=== PATIENT | female | born 1990 | race African-American/Black ===

== ENCOUNTER 2016-08-13 12:35 | Emergency (ER) | payer OTHER, MEDICAID ==
--- NOTE | 2016-08-13 13:10 | ER Document Report ---
ED Medical Screen (RME) - General Stated Complaint: VAGINAL BLEEDING Mode of Arrival: Ambulatory Information source: Patient Notes: Patient presents complaining of left lower pelvic abdominal pain and left lower back pain for the past 4 days. Patient reports vaginal bleeding for the past 12 days. Patient does complain of occasional dizziness hx: None I have greeted and performed a rapid initial assessment of this patient. A comprehensive ED assessment and evaluation of the patient, analysis of test results and completion of the medical decision making process will be conducted by additional ED providers. TRAVEL OUTSIDE OF THE [place] IN LAST 30 DAYS: No - Related Data Allergies/Adverse Reactions: No Known Allergies Allergy (Verified 08/13/16 13:08) Past Medical History Renal/ Medical History: Reports: Hx Pelvic Inflammatory Disease - Chlamydia Past Surgical History: Reports: Hx Oral Surgery - [place] teeth - Immunizations Hx Diphtheria, Pertussis, Tetanus Vaccination: Yes Physical Exam - Vital signs Vitals: Temp Pulse BP Pulse Ox 97.9 F 62 113/76 100 08/13/16 13:07 08/13/16 13:07 08/13/16 13:07 08/13/16 13:07 - Abdominal Tenderness: Tender - Left lower quadrant Course - Vital Signs Vital signs: Temp Pulse Resp BP Pulse Ox 97.9 F 62 113/76 100 08/13/16 13:07 08/13/16 13:07 08/13/16 13:07 08/13/16 13:07
[2016-08-13 13:56] LABS: ABSOLUTE EOSINOPHILS # (AUTO) 0.1 10^3/uL (0.0-0.6); ABSOLUTE MONOCYTES (AUTO) 0.4 10^3/uL (0.1-1.4); ABSOLUTE NEUT (AUTO) 1.8 10^3/uL (1.7-8.2); BASOPHILS % (AUTO) 0.3 % (0-2); EOSINOPHILS % (AUTO) 3.1 % (0-6); HEMATOCRIT 43.2 % (36.0-47.0); HGB HCT DIFFERENCE -1.2; LYMPHOCYTES % (AUTO) 45.8 % (13-45); MEAN CORPUSCULAR HEMOGLOBIN 26.5 pg (27.0-33.4); MEAN CORPUSCULAR HGB CONC 32.5 g/dL (32.0-36.0); MEAN CORPUSCULAR VOLUME 81 fl (80-97); MONOCYTES % (AUTO) 9.9 % (3-13); RED CELL DISTRIBUTION WIDTH 13.4 % (11.5-14.0); SEGMENTED NEUTROPHILS % (AUTO) 40.9 % (42-78); WHITE BLOOD COUNT 4.3 10^3/uL (4.0-10.5)
[2016-08-13 14:09] LABS: ALANINE AMINOTRANSFERASE 28 U/L (9-52); ALBUMIN 4.6 g/dL (3.5-5.0); ALKALINE PHOSPHATASE 75 U/L (38-126); ANION GAP 13 (5-19); ASPARTATE AMINO TRANSFERASE 26 U/L (14-36); BILIRUBIN,TOTAL 0.8 mg/dL (0.2-1.3); BLOOD UREA NITROGEN 8 mg/dL (7-20); CALCIUM 9.9 mg/dL (8.4-10.2); CARBON DIOXIDE 27 mmol/L (22-30); CHLORIDE 105 mmol/L (98-107); CREATININE RESULT 0.82 mg/dL (0.52-1.25); GLUCOSE 91 mg/dL (75-110); POTASSIUM 4.2 mmol/L (3.6-5.0); TOTAL PROTEIN 8.2 g/dL (6.3-8.2)
--- NOTE | 2016-08-13 15:12 | ER Document Report ---
ED General - General Chief Complaint: Vaginal Bleeding Stated Complaint: VAGINAL BLEEDING Mode of Arrival: Ambulatory Notes: Patient presents emergency department with complaints of extended vaginal bleeding for 12 days. Patient reports she thought she started her normal menses on July 31. She reports approximately 4 days ago she started passing clots. She now complains of low back pain and feeling dizzy at times. She reports she had a baby on May 02 and the baby passed. She reports she lost a lot of blood at that time and had to have 2 units of blood transfused. She reports she has followed up with her [employer] since that time. Everything has been normal until this. She reports she had a normal menses in June. She denies other symptoms such as fever vomiting diarrhea. She denies trauma. She reports she is changing pads every 2 hours. TRAVEL OUTSIDE OF THE [place] IN LAST 30 DAYS: No - HPI Onset: Other - jul 31 Quality of pain: Cramping Pain Level: 4 Associated symptoms: None Exacerbated by: Denies Relieved by: Denies Similar symptoms previously: No Recently seen / treated by doctor: No - Related Data Allergies/Adverse Reactions: No Known Allergies Allergy (Verified 08/13/16 13:08) Past Medical History - General Information source: Patient Last Menstrual Period: jul 31- last normal was in 2015 - Social History Smoking Status: Unknown if Ever Smoked Chew tobacco use (# tins/day): No Frequency of alcohol use: None Drug Abuse: Marijuana Family History: CAD, CVA, DM, Hyperlipidemia, Hypertension, Malignancy, Thyroid Disfunction Patient has suicidal ideation: No Patient has homicidal ideation: No Renal/ Medical History: Reports: Hx Pelvic Inflammatory Disease - Chlamydia. Denies: Hx Peritoneal Dialysis Past Surgical History: Reports: Hx Oral Surgery - [place] teeth - Immunizations Hx Diphtheria, Pertussis, Tetanus Vaccination: Yes Review of Systems - Review of Systems Notes: Review HPI for review of systems., All other systems negativeI. Physical Exam - Vital signs Vitals: Temp Pulse BP Pulse Ox 97.9 F 62 113/76 100 08/13/16 13:07 08/13/16 13:07 08/13/16 13:07 08/13/16 13:07 - Notes Notes: PHYSICAL EXAMINATION: GENERAL: Well-appearing and in no acute distress nontoxic looking HEAD: Atraumatic, normocephalic. EYES: Pupils equal round extraocular movements intact, sclera anicteric, conjunctiva are normal. ENT: nares patent, Moist mucous membranes. NECK: Normal range of motion, supple without lymphadenopathy LUNGS: CTAB and equal. No wheezes rales or rhonchi. HEART: Regular rate and rhythm without murmurs ABDOMEN: Soft, no tenderness. No guarding, no rebound no c/o pain with palpation BACK: No c/o pain with palpation EXTREMITIES: Normal range of motion, no pitting edema. No cyanosis. NEUROLOGICAL: Cranial nerves grossly intact. Normal sensory/motor exams. PSYCH: Normal mood, normal affect. SKIN: Warm, Dry, normal turgor, no rashes or lesions noted - Genitourinary External exam: Normal Speculum exam: Normal Vaginal bleeding: None Bimanuel exam: Normal Course - Re-evaluation Re-evalutation: 08/13/16 she instructed on all results. - Vital Signs Vital signs: Temp Pulse Resp BP Pulse Ox 97.8 F 62 18 115/83 100 08/13/16 16:51 08/13/16 16:51 08/13/16 16:51 08/13/16 16:51 08/13/16 16:51 - Laboratory Result Diagrams: 08/13/16 13:30 08/13/16 13:30 Laboratory results interpreted by me: 08/13/16 13:30 RBC 5.30 H MCH 26.5 L Seg Neutrophils % 40.9 L Lymphocytes % 45.8 H Procedures - Pelvic Exam Pelvic exam Cultures obtained: Yes Wet prep obtained: Yes Herpes culture obtained: No POC sent to lab: No Foreign body removed: No Bimanual exam performed: Yes Witnessed by: franchesca RICK Notes: 08/13/16 16:10 no bleeding noted Discharge - Discharge Clinical Impression: Vaginal bleeding Condition: Stable Disposition: HOME, SELF-CARE Instructions: Vaginal Bleeding ([facility]), Use of [id number]-[id number]-Zcqwiik Ibuprofen ([facility]) Additional Instructions: *You have been evaluated for vaginal bleeding *Take ibuprofen for cramps as indicated *Follow up with your [employer] or the health department for recheck within one week *Avoid sexual intercourse until follow up *Return to ED for worsening condition, changes, needs
[2016-08-13 15:19] LABS: APPEARANCE,URINE SLIGHTLY-CLOUDY; BILIRUBIN,URINE NEGATIVE (NEGATIVE); GLUCOSE, URINE NEGATIVE (NEGATIVE); KETONES,URINE NEGATIVE (NEGATIVE); LEUKOCYTE ESTERASE,URINE NEGATIVE (NEGATIVE); NITRITE,URINE NEGATIVE (NEGATIVE); PROTEIN,URINE NEGATIVE (NEGATIVE); URINE SPECIFIC GRAVITY 1.025; UROBILINOGEN,URINE NEGATIVE mg/dL (<2.0)
[2016-08-13 16:53] VITALS: BP 115/83
[2016-08-13 17:28] LABS: CHLAM PCR NOT DETECTED (NOT DETECT)
== END 2016-08-13 16:51 | disposition home or self-care (01) ==
LOC: ER 12:35
DX: N93.8 Other specified abnormal uterine and vaginal bleeding (principal)
CPT/HCPCS: 36415; 80053; 81001; 84703; 85025; 87210; 87491; 87591; 99284

== ENCOUNTER 2017-02-13 16:03 | Emergency (ER) | payer MEDICAID, OTHER ==
--- NOTE | 2017-02-13 16:26 | ER Document Report ---
ED Medical Screen (RME) - General Chief Complaint: Dizziness Stated Complaint: DIZZINESS Time Seen by Provider: 02/13/17 16:26 Notes: Patient reports several days of feeling weak and dizzy. She states this feels similar to when she had have a transfusion before. She states she had have a transfusion because of heavy menstrual cycles. She was placed on iron tablets but has not been taking them recently. No recent heavy menstrual cycle. She is unsure if she is . TRAVEL OUTSIDE OF THE [place] IN LAST 30 DAYS: No - Related Data Allergies/Adverse Reactions: No Known Allergies Allergy (Verified 02/13/17 16:08) Past Medical History Renal/ Medical History: Reports: Hx Pelvic Inflammatory Disease - Chlamydia. Denies: Hx Peritoneal Dialysis Past Surgical History: Reports: Hx Oral Surgery - [place] teeth - Immunizations Hx Diphtheria, Pertussis, Tetanus Vaccination: Yes
[2017-02-13 17:18] LABS: ABSOLUTE LYMPHOCYTES (AUTO) 1.8 10^3/uL (0.5-4.7); ABSOLUTE MONOCYTES (AUTO) 0.4 10^3/uL (0.1-1.4); BASOPHILS % (AUTO) 0.4 % (0-2); EOSINOPHILS % (AUTO) 0.3 % (0-6); HEMATOCRIT 39.9 % (36.0-47.0); HGB HCT DIFFERENCE -0.9; LYMPHOCYTES % (AUTO) 21.8 % (13-45); MEAN CORPUSCULAR HEMOGLOBIN 26.9 pg (27.0-33.4); MEAN CORPUSCULAR HGB CONC 32.7 g/dL (32.0-36.0); MEAN CORPUSCULAR VOLUME 82 fl (80-97); MONOCYTES % (AUTO) 5.4 % (3-13); RED BLOOD COUNT 4.85 10^6/uL (3.72-5.28); RED CELL DISTRIBUTION WIDTH 14.2 % (11.5-14.0); SEGMENTED NEUTROPHILS % (AUTO) 72.1 % (42-78); WHITE BLOOD COUNT 8.3 10^3/uL (4.0-10.5)
--- NOTE | 2017-02-13 17:23 | ER Document Report ---
ED General - General Mode of Arrival: Ambulatory Information source: Patient TRAVEL OUTSIDE OF THE [place] IN LAST 30 DAYS: No - HPI Onset: This afternoon Associated symptoms: Other - see above <SATISH SALAS - Last Filed: 02/13/17 17:19> <ELIE CAMPBELL - Last Filed: 02/13/17 18:23> - General Chief Complaint: Dizziness Stated Complaint: DIZZINESS Time Seen by Provider: 02/13/17 16:26 Notes: Patient is a 26 year old female who presents to the ED with complaints of feeling weak and dizzy with onset this afternoon. Patient has a history of anemia and had a blood transfusion 6 months ago. Patient stopped iron pills in November. Patient has had a headache since approximately 1300. Patient is only on control. Patients last menstrual period was 2 week ago, she states normally her periods are heavy but states this time it was short. Patient denies any abdominal pain. (SATISH SALAS) Patient states the dizziness she had earlier today is gone at this time. (ELIE CAMPBELL) - Related Data Allergies/Adverse Reactions: No Known Allergies Allergy (Verified 02/13/17 16:08) Past Medical History - General Information source: Patient - Social History Smoking Status: Unknown if Ever Smoked Family History: CAD, CVA, DM, Hyperlipidemia, Hypertension, Malignancy, Thyroid Disfunction Patient has suicidal ideation: No Renal/ Medical History: Reports: Hx Pelvic Inflammatory Disease - Chlamydia. Denies: Hx Peritoneal Dialysis Past Surgical History: Reports: Hx Oral Surgery - [place] teeth - Immunizations Hx Diphtheria, Pertussis, Tetanus Vaccination: Yes <SATISH SALAS - Last Filed: 02/13/17 17:19> Review of Systems - Review of Systems Constitutional: See HPI, Weakness EENT: No symptoms reported Cardiovascular: See HPI, Dizziness Respiratory: No symptoms reported Gastrointestinal: See HPI. denies: Abdominal pain Genitourinary: No symptoms reported Female Genitourinary: No symptoms reported Musculoskeletal: No symptoms reported Skin: No symptoms reported Hematologic/Lymphatic: No symptoms reported Neurological/Psychological: See HPI, Weakness <SATISH SALAS - Last Filed: 02/13/17 17:19> Physical Exam - General General appearance: Appears well, Alert In distress: None - HEENT Head: Normocephalic, Atraumatic Eyes: Normal Extraocular movements intact: Yes Pupils: PERRL - Respiratory Respiratory status: No respiratory distress Breath sounds: Normal - Cardiovascular Rhythm: Regular Heart sounds: Normal auscultation Murmur: No - Abdominal Inspection: Normal Distension: No distension Bowel sounds: Normal Tenderness: Nontender - Back Back: Normal - Extremities General upper extremity: Normal inspection, Normal ROM General lower extremity: Normal inspection, Normal ROM - Neurological Neuro grossly intact: Yes - Psychological Associated symptoms: Normal affect, Normal mood - Skin Skin Temperature: Warm Skin Moisture: Dry Skin Color: Normal <SATISH SALAS - Last Filed: 02/13/17 17:19> Course - Laboratory Result Diagrams: 02/13/17 16:27 02/13/17 16:47 <ELIE CAMPBELL - Last Filed: 02/13/17 18:23> - Laboratory Laboratory results interpreted by me: 02/13/17 02/13/17 02/13/17 16:27 16:47 16:47 MCH 26.9 L RDW 14.2 H Total Protein 8.3 H Urine Ketones TRACE H Ur Leukocyte Esterase TRACE H Discharge <SATISH SALAS - Last Filed: 02/13/17 17:19> <ELIE CAMPBELL - Last Filed: 02/13/17 18:23> - Discharge Clinical Impression: Dizzy Headache Qualifiers: Headache type: unspecified Headache chronicity pattern: acute headache Intractability: not intractable Qualified Code(s): R51 - Headache Condition: Stable Disposition: HOME, SELF-CARE Additional Instructions: Your hemoglobin level today was normal. Your dizziness is probably due to a viral illness, as it seems to have improved from earlier today. Your headache is also likely to be due to viral illness. Today you should take Tylenol for your headache if needed, drink plenty of fluids and get plenty of rest. Follow-up with your medical doctor if not improving. RETURN TO THE EMERGENCY ROOM IF ANY NEW OR WORSENING SYMPTOMS. Forms: Return to Work Scribe Attestation: 02/13/17 18:21 I personally performed the services described in the documentation, reviewed and edited the documentation which was dictated to the scribe in my presence, and it accurately records my words and actions. (ELIE CAMPBELL) Scribe Documentation - Scribe Written by Scribe:: ryan Figueroa, 02/13/2017, 1723 acting as scribe for :: Rachelle <SATISH SALAS - Last Filed: 02/13/17 17:19>
[2017-02-13 17:32] LABS: ALANINE AMINOTRANSFERASE 25 U/L (9-52); ALBUMIN 4.9 g/dL (3.5-5.0); ALKALINE PHOSPHATASE 62 U/L (38-126); ANION GAP 11 (5-19); ASPARTATE AMINO TRANSFERASE 27 U/L (14-36); BILIRUBIN,DIRECT 0.3 mg/dL (0.0-0.4); BILIRUBIN,TOTAL 0.9 mg/dL (0.2-1.3); BLOOD UREA NITROGEN 11 mg/dL (7-20); CALCIUM 9.6 mg/dL (8.4-10.2); CARBON DIOXIDE 25 mmol/L (22-30); CHLORIDE 106 mmol/L (98-107); CREATININE RESULT 1.03 mg/dL (0.52-1.25); GLUCOSE 97 mg/dL (75-110); POTASSIUM 4.2 mmol/L (3.6-5.0); SODIUM 141.8 mmol/L (137-145); TOTAL PROTEIN 8.3 g/dL (6.3-8.2)
[2017-02-13 18:12] LABS: APPEARANCE,URINE SLIGHTLY-CLOUDY; BILIRUBIN,URINE NEGATIVE (NEGATIVE); GLUCOSE, URINE NEGATIVE (NEGATIVE); KETONES,URINE TRACE mg/dL (NEGATIVE); LEUKOCYTE ESTERASE,URINE TRACE (NEGATIVE); NITRITE,URINE NEGATIVE (NEGATIVE); PROTEIN,URINE NEGATIVE (NEGATIVE); URINE SPECIFIC GRAVITY 1.027; UROBILINOGEN,URINE NEGATIVE mg/dL (<2.0)
[2017-02-13 19:01] VITALS: BP 116/77
== END 2017-02-13 19:06 | disposition home or self-care (01) ==
LOC: ER 16:03
DX: R42 Dizziness and giddiness (principal); R51 Headache; R53.1 Weakness
CPT/HCPCS: 36415; 80053; 81001; 81025; 85025; 99284

== ENCOUNTER 2017-07-29 08:52 | Emergency (ER) | payer OTHER ==
--- NOTE | 2017-07-29 09:29 | ER Document Report ---
ED Medical Screen (RME) - General Chief Complaint: Abdominal Pain Stated Complaint: ABDOMINAL PAIN Time Seen by Provider: 07/29/17 09:12 Mode of Arrival: Ambulatory Information source: Patient Notes: This is a 27-year-old female 1 para 0 (1 miscarriage due to cervical incompetence at 7 months ). The patient is sexually active and uses no control. Her menstrual cycle is reported as irregular. Her last normal menstrual cycle was June 22. She presents to the emergency room with intermittent abdominal discomfort, breast soreness and low back pain. There has been no nausea, vomiting, vaginal bleeding. Patient states she is eating okay. TRAVEL OUTSIDE OF THE [place] IN LAST 30 DAYS: No - HPI Onset: Last week Onset/Duration: Gradual Quality of pain: Cramping Severity: None Associated Symptoms: denies: Chest pain, Fever, Headache, Slow to respond Exacerbated by: Denies Relieved by: Denies Similar symptoms previously: Yes - Similar symptoms during Recently seen / treated by doctor: No - Related Data Smoking: Non-smoker Frequency of alcohol use: None Drug Abuse: None Allergies/Adverse Reactions: No Known Allergies Allergy (Verified 07/29/17 08:53) Past Medical History - General Information source: Patient - Social History Cigarette use (# per day): No Chew tobacco use (# tins/day): No Frequency of alcohol use: None Drug Abuse: Marijuana Lives with: Family Family history: None - Medical History Medical History: Negative Renal/ Medical History: Reports: Hx Pelvic Inflammatory Disease - Chlamydia. Denies: Hx Peritoneal Dialysis Malignancy Medical History: Reports: None GI Medical History: Reports: None Musculoskeltal Medical History: Reports None Skin Medical History: Reports None Psychiatric Medical History: Reports: None Traumatic Medical History: Reports: None Infectious Medical History: Reports: None Past Surgical History: Reports: Hx Oral Surgery - [place] teeth - Immunizations Hx Diphtheria, Pertussis, Tetanus Vaccination: Yes Review of Systems - Review of Systems Constitutional: denies: Chills, Fever EENT: No symptoms reported Cardiovascular: No symptoms reported Respiratory: No symptoms reported Gastrointestinal: See HPI Genitourinary: No symptoms reported Female Genitourinary: No symptoms reported Musculoskeletal: See HPI Skin: No symptoms reported Hematologic/Lymphatic: No symptoms reported Neurological/Psychological: No symptoms reported Physical Exam - Vital signs Vitals: Temp Pulse Resp BP Pulse Ox 98.1 F 87 16 112/66 100 07/29/17 08:59 07/29/17 08:59 07/29/17 08:59 07/29/17 08:59 07/29/17 08:59 Notes: Physical exam: GENERAL: 27-year-old female, alert and oriented 3, no acute distress HEAD: Atraumatic, normocephalic. EYES: Pupils equal round and reactive to light, extraocular movements intact, sclera anicteric, conjunctiva are normal. ENT: TMs normal, nares patent, oropharynx clear without exudates. Moist mucous membranes. NECK: Normal range of motion, supple without obvious mass or JVD. LUNGS: Breath sounds clear to auscultation bilaterally and equal. No wheezes rales or rhonchi. HEART: Regular rate and rhythm without murmurs, rubs or gallops. ABDOMEN: Soft, normoactive bowel sounds. No tenderness to palpation. No guarding, no rebound. No masses appreciated. EXTREMITIES: Normal range of motion, no pitting or edema. No clubbing or cyanosis. NEUROLOGICAL: Cranial nerves II through XII grossly intact. Normal speech, moving all extremities. PSYCH: Normal mood, normal affect. SKIN: Warm, Dry, normal turgor, no rashes or lesions noted. Course - Re-evaluation Re-evalutation: 07/29/17 12:03 At the time of discharge, I have instructed the patient at the bedside with regards to return precautions and follow-up recommendations. The opportunity for questions was given. The patient has verbalized understanding of these instructions and the need for follow-up. - Vital Signs Vital signs: Temp Pulse Resp BP Pulse Ox 98.8 F 90 16 115/80 97 07/29/17 11:58 07/29/17 11:58 07/29/17 11:58 07/29/17 11:58 07/29/17 11:58 - Laboratory Laboratory results interpreted by ak: 07/29/17 07/29/17 09:35 09:35 Beta HCG, Quant 780.35 H Urine Ketones 80 H Urine Urobilinogen 2.0 H Ur Leukocyte Esterase LARGE H Urine Ascorbic Acid 40 H - Diagnostic Test Radiology reviewed: Image reviewed, Reports reviewed - Ultrasound does show intrauterine gestational sac. The official report is nondiagnostic is quite early. Doctor's Discharge - Discharge Clinical Impression: First trimester Condition: Stable Disposition: HOME, SELF-CARE Additional Instructions: As we discussed, the official report of the ultrasound is nondiagnostic. However, there does appear to be a small gestational sac in the uterus consistent with early . Given your history of cervical incompetence, I would like you to [facility] in the . It is recommended that you have a repeat blood testing and potentially an ultrasound in the next week. However, return to the emergency room for any pain, worsening cramping or vaginal bleeding in the meantime. As far as medicines that are safe in : Tylenol is okay: No aspirin or ibuprofen or Aleve Referrals: BERNADETTE CROWE MD [ACTIVE STAFF] - Follow up as needed (This is the number for the [facility])
[2017-07-29 10:07] LABS: APPEARANCE,URINE SLIGHTLY-CLOUDY; BILIRUBIN,URINE NEGATIVE (NEGATIVE); COLOR,URINE YELLOW; GLUCOSE, URINE NEGATIVE (NEGATIVE); KETONES,URINE 80 mg/dL (NEGATIVE); LEUKOCYTE ESTERASE,URINE LARGE (NEGATIVE); NITRITE,URINE NEGATIVE (NEGATIVE); PROTEIN,URINE NEGATIVE (NEGATIVE); URINE SPECIFIC GRAVITY 1.033
--- NOTE | 2017-07-29 11:40 | RADIOLOGY REPORT (SQ) ---
EXAM DESCRIPTION: U/S OB TRANSVAG W/DOPPLER COMPLETED DATE/TIME: 07/29/2017 11:32 am REASON FOR STUDY: abd cramping, preg COMPARISON: None. TECHNIQUE: Transvaginal static and realtime grayscale images acquired of the pelvis. Additional blaze cted spectral and color Doppler images recorded. All images stored on PACs. bHC.35 LIMITATIONS: None. FINDINGS: UTERUS: No masses. No anomalies. GESTATIONAL SAC: Possible. YOLK SAC: No. POLE: No. RIGHT ADNEXA: Normal ovary with normal vascular flow. No adnexal free fluid. No adnexal masses. LEFT ADNEXA: Normal ovary with normal vascular flow. No adnexal free fluid. No adnexal masses. FREE FLUID: None. OTHER: No other significant finding. IMPRESSION: POSSIBLE EARLY INTRAUTERINE . BHCG LEVEL APPROPRIATE FOR ENDOMETRIAL FINDINGS. CONSIDER F/U BHCG AND/OR ULTRASOUND FOR VERIFICATION AND TO EXCLUDE ECTOPIC . Trimester of : First - 0 to 13 weeks. TECHNICAL DOCUMENTATION: JOB ID: [id number] [employer]- All Rights Reserved
[2017-07-29 11:59] VITALS: BP 115/80
== END 2017-07-29 12:04 | disposition home or self-care (01) ==
LOC: ER 08:52
DX: O26.891 Other specified pregnancy related conditions, first trimester (principal); R19.8 Other specified symptoms and signs involving the digestive system and abdomen; O99.89 Other specified diseases and conditions complicating pregnancy, childbirth and the puerperium; M54.5 Low back pain; O92.29 Other disorders of breast associated with pregnancy and the puerperium; Z3A.01 Less than 8 weeks gestation of pregnancy; Z87.59 Personal history of other complications of pregnancy, childbirth and the puerperium
CPT/HCPCS: 36415; 76817; 81001; 84702; 87086; 93976; 99284

== ENCOUNTER 2017-08-12 06:35 | Emergency (ER) | payer OTHER ==
--- NOTE | 2017-08-12 07:18 | ER Document Report ---
ED GI/ - General Chief Complaint: Vaginal Bleeding Stated Complaint: VAGINAL BLEEDING Time Seen by Provider: 08/12/17 07:18 Mode of Arrival: Ambulatory Information source: Patient Notes: 27 yo female (spon AB) with scant spotting when she wiped after urination this am. No pelvic pain. Increased vaginal discharge. No itch. No dysuria. No fever. History of chlamydia years ago. Seen in the emergency room July 29 with early IUP on US. TRAVEL OUTSIDE OF THE [place] IN LAST 30 DAYS: No - Related Data Allergies/Adverse Reactions: No Known Allergies Allergy (Verified 08/12/17 06:38) Past Medical History - General Information source: Patient - Social History Smoking Status: Never Smoker Drug Abuse: Marijuana - 2 months ago Family History: CAD, CVA, DM, Hyperlipidemia, Hypertension, Malignancy, Thyroid Disfunction Patient has suicidal ideation: No Patient has homicidal ideation: No - Medical History Notes: 1 spontaneous miscarriage April 2016 Renal/ Medical History: Reports: Hx Pelvic Inflammatory Disease - Chlamydia. Denies: Hx Peritoneal Dialysis Past Surgical History: Reports: Hx Oral Surgery - [place] teeth - Immunizations Hx Diphtheria, Pertussis, Tetanus Vaccination: Yes Review of Systems - Review of Systems Constitutional: No symptoms reported EENT: No symptoms reported Cardiovascular: No symptoms reported Respiratory: No symptoms reported Gastrointestinal: No symptoms reported Genitourinary: No symptoms reported Female Genitourinary: See HPI Musculoskeletal: No symptoms reported Skin: No symptoms reported Hematologic/Lymphatic: No symptoms reported Neurological/Psychological: No symptoms reported Physical Exam - Vital signs Vitals: Temp Pulse Resp BP Pulse Ox 98.0 F 85 18 115/57 L 97 08/12/17 06:44 08/12/17 06:44 08/12/17 06:44 08/12/17 06:44 08/12/17 06:44 Interpretation: Normal - General General appearance: Appears well, Alert - HEENT Head: Normocephalic, Atraumatic Eyes: Normal Pupils: PERRL Neck: Supple. No: Lymphadenopathy - Respiratory Respiratory status: No respiratory distress Chest status: Nontender Breath sounds: Normal Chest palpation: Normal - Cardiovascular Rhythm: Regular Heart sounds: Normal auscultation Murmur: No - Abdominal Inspection: Normal Distension: No distension Bowel sounds: Normal Tenderness: Nontender. No: Tender Organomegaly: No organomegaly - Genitourinary External exam: Normal Speculum exam: Cervix closed Vaginal bleeding: Mild - scant blood at os, clumpy white discharge with no odor - Back Back: Normal, Nontender. No: CVA tenderness - Extremities General upper extremity: Normal inspection, Nontender, Normal color, Normal ROM , Normal temperature General lower extremity: Normal inspection, Nontender, Normal color, Normal ROM , Normal temperature, Normal weight bearing. No: Janice's sign - Neurological Neuro grossly intact: Yes Cognition: Normal Orientation: AAOx4 [place] Coma Scale Eye Opening: Spontaneous [place] Coma Scale Verbal: Oriented Cindi Coma Scale Motor: Obeys Commands Cindi Coma Scale Total: 15 Speech: Normal Motor strength normal: LUE, RUE, LLE, RLE Sensory: Normal - Psychological Associated symptoms: Normal affect, Normal mood - Skin Skin Temperature: Warm Skin Moisture: Dry Skin Color: Normal Course - Re-evaluation Re-evalutation: 08/12/17 08:47 Quantitative has increased to 99,805, CBC is normal, blood type is O+, trace bacteria in urine with 3 RBCs and 3 WBCs negative nitrite. 08/12/17 09:13 wet prep no yeast, 4+bact, 3+ epi but is not malodorous 08/12/17 09:29 6 week 1 day viable IUP, pt will call me back for the chlam jenni result - Vital Signs Vital signs: Temp Pulse Resp BP Pulse Ox 98.0 F 72 18 117/70 99 08/12/17 09:36 08/12/17 09:36 08/12/17 09:36 08/12/17 09:36 08/12/17 09:36 - Laboratory Result Diagrams: 08/12/17 07:40 Laboratory results interpreted by me: 08/12/17 08/12/17 07:40 07:40 Beta HCG, Quant 39442.00 H Urine Blood MODERATE H Ur Leukocyte Esterase LARGE H Discharge - Discharge Clinical Impression: viable 6 week 1 day IUP Condition: Good Disposition: HOME, SELF-CARE Instructions: Bleeding During Early ([facility]), Vaginal Bleeding ([facility]) Additional Instructions: Return to the emergency room for increased bleeding or pelvic pain, any concerns Call me in 3 hours for the gonorrhea and Chlamydia test results [phone] Referrals: FRED BARLOW MD [Primary Care Provider] - Follow up as needed
[2017-08-12 07:59] LABS: ABSOLUTE EOSINOPHILS # (AUTO) 0.1 10^3/uL (0.0-0.6); ABSOLUTE LYMPHOCYTES (AUTO) 1.8 10^3/uL (0.5-4.7); ABSOLUTE MONOCYTES (AUTO) 0.6 10^3/uL (0.1-1.4); ABSOLUTE NEUT (AUTO) 5.4 10^3/uL (1.7-8.2); BASOPHILS % (AUTO) 0.6 % (0-2); EOSINOPHILS % (AUTO) 0.8 % (0-6); HEMATOCRIT 40.2 % (36.0-47.0); HEMOGLOBIN 13.6 g/dL (12.0-15.5); LYMPHOCYTES % (AUTO) 22.4 % (13-45); MEAN CORPUSCULAR HEMOGLOBIN 28.5 pg (27.0-33.4); MEAN CORPUSCULAR HGB CONC 33.9 g/dL (32.0-36.0); MEAN CORPUSCULAR VOLUME 84 fl (80-97); MONOCYTES % (AUTO) 7.2 % (3-13); PLATELET COUNT 256 10^3/uL (150-450); RED BLOOD COUNT 4.77 10^6/uL (3.72-5.28); RED CELL DISTRIBUTION WIDTH 13.3 % (11.5-14.0); TOTAL CELLS COUNTED % (AUTO) 100 %; WHITE BLOOD COUNT 7.8 10^3/uL (4.0-10.5)
[2017-08-12 08:10] LABS: APPEARANCE,URINE SLIGHTLY-CLOUDY; BILIRUBIN,URINE NEGATIVE (NEGATIVE); COLOR,URINE YELLOW; GLUCOSE, URINE NEGATIVE (NEGATIVE); KETONES,URINE NEGATIVE (NEGATIVE); LEUKOCYTE ESTERASE,URINE LARGE (NEGATIVE); NITRITE,URINE NEGATIVE (NEGATIVE); PROTEIN,URINE NEGATIVE (NEGATIVE); URINE SPECIFIC GRAVITY 1.012; UROBILINOGEN,URINE NEGATIVE mg/dL (<2.0)
--- NOTE | 2017-08-12 08:48 | RADIOLOGY REPORT (SQ) ---
EXAM DESCRIPTION: U/S OB TRANSVAG W/DOPPLER COMPLETED DATE/TIME: 08/12/2017 8:22 am REASON FOR STUDY: vaginal bleeding COMPARISON: None. TECHNIQUE: Transvaginal static and realtime grayscale images acquired of the pelvis. Additional blaze cted spectral and color Doppler images recorded. All images stored on PACs. bHCG: Pending. LIMITATIONS: None. FINDINGS: FETUS: Living intrauterine . EGA: 6 weeks 1 day MIO: 04/06/2018 FHR: 116 beats per minute. SUBCHORIONIC BLEED: No. SIZE OF BLEED: Not applicable. UTERUS: No masses. No anomalies. CERVICAL LENGTH: 3.2 cm Closed. RIGHT ADNEXA: Normal ovary with normal vascular flow. No adnexal free fluid. No adnexal masses. LEFT ADNEXA: Normal ovary with normal vascular flow. No adnexal free fluid. No adnexal masses. FREE FLUID: None. OTHER: No other significant finding. IMPRESSION: LIVING INTRAUTERINE . EGA 6 weeks 1 day Trimester of : First - 0 to 13 weeks. TECHNICAL DOCUMENTATION: JOB ID: [id number] [employer]- All Rights Reserved
[2017-08-12 08:53] LABS: BACTERIA (WET MOUNT) 3+ BACTERIA SEEN; EPITHELIALS (WET MOUNT) 4+ EPITHELIALS SEEN; RBCS (WET MOUNT) 1+ RBCS SEEN; T.VAGINALIS (WET MOUNT) NO TRICHOMONAS SEEN; WBCS (WET MOUNT) 1+ WBCS SEEN; YEAST (WET MOUNT) NO YEAST SEEN
[2017-08-12 09:40] VITALS: BP 117/70
[2017-08-12 10:21] LABS: CHLAM PCR NOT DETECTED (NOT DETECT); GON PCR NOT DETECTED (NOT DETECT)
== END 2017-08-12 09:39 | disposition home or self-care (01) ==
LOC: ER 06:35
DX: O20.9 Hemorrhage in early pregnancy, unspecified (principal); Z3A.01 Less than 8 weeks gestation of pregnancy
CPT/HCPCS: 36415; 76817; 81001; 84702; 85025; 86900; 86901; 87210; 87491; 87591; 93976; 99284

== ENCOUNTER 2018-02-19 11:12 | Outpatient (CLI) | payer OTHER ==
--- NOTE | 2018-02-19 12:08 | L&D Progress Notes ---
PROGRESS NOTES Datetime Report Generated by CPN: 02/19/2018 12:08 PROGRESS NOTE Impression: Reassuring Heart Rate Impression Other: stable, s/p fall at 34 wks Procedures- Other: EFM Plan: Discharge Vital Signs : Reviewed; Within Normal Limits Vital Signs Comments: O+ blood type Comment: Pt tripped over her dog this morning and fell on her side. No direct hit to her abdoman. States +FM, denies SRoM, pain, bleeding or contractions Abdoman soft and nontender on palpation. Abruption precautions discussed. Pt to f/u with [facility] as scheduled or if having abd pain, vaginal bleeding, decreased FM or Contractions. Will D/c to home MEMBRANES Membranes: Intact FETUS A Monitoring: External US FHR Category: Category I FHR Comments: +FM on EFM, SIGNATURE SIGNATURE: [id number] Assignment: Cynthia Car MD Signature: with User ID: Rachel : with User ID: Rachel
== END 2018-02-19 12:36 | disposition home or self-care (01) ==
LOC: LC 11:12
PROVIDERS: ATTEND Obstetrics & Gynecology
PROC: 4A1HXCZ Monitoring of Products of Conception, Cardiac Rate, External Approach (ICD-10-PCS; principal; 2018-02-19)
DX: O9A.213 Injury, poisoning and certain other consequences of external causes complicating pregnancy, third trimester (principal); Z3A.34 34 weeks gestation of pregnancy
CPT/HCPCS: 59025

== ENCOUNTER 2018-02-28 16:06 | Outpatient (CLI) | payer OTHER ==
--- NOTE | 2018-02-28 17:02 | Non Stress Test Report ---
Non Stress Test Datetime Report Generated by CPN: 02/28/2018 17:02 DEMOGRAPHIC EGA NST: 34.5 EGA NST: 33.3 INDICATION Indication for Study: Ordered by Provider Indication for Study: Ordered by Provider Indication for Study (NST) Other: repeat NST VITAL SIGNS NBPSYS NST: 107 NBPDIA NST: 55 MONITORING Monitor Explained: Monitor Explained; Test Explained; Patient Verbalized Understanding Monitor Explained: Monitor Explained; Test Explained; Patient Verbalized Understanding Time on Monitor: 02/28/2018 16:23 Time on Monitor: 02/19/2018 11:24 Time off Monitor: 02/28/2018 16:56 Time off Monitor: 02/19/2018 12:33 NST Duration: 33 NST Duration: 69 NST INTERVENTIONS NST Interventions: PO Hydration NST Interventions: PO Hydration; Reposition Patient Physician Notified NST: Dr. Cotto Physician Notified NST: aMrilyn Sheppard CNM BABY A: [id number] BABY A Movement : Present Movement : Present Contraction Frequency : 0 Contraction Frequency : denies FHR Baseline : 135 FHR Baseline : 150 Accelerations : 15X15 Accelerations : 15X15 Decelerations : None Decelerations : None Variability : Moderate 6-25bpm Variability : Moderate 6-25bpm NST Review: Meets Criteria for Reactive NST NST Review: Meets Criteria for Reactive NST NST Review and Verified By : Isidra Harris RN NST Results: Reactive NST Results: Reactive NST REPORT Report Trigger: Send Report
== END 2018-02-28 17:03 | disposition home or self-care (01) ==
LOC: LC 16:06
PROVIDERS: ATTEND Obstetrics & Gynecology
PROC: 4A1HXCZ Monitoring of Products of Conception, Cardiac Rate, External Approach (ICD-10-PCS; principal; 2018-02-28)
DX: Z34.93 Encounter for supervision of normal pregnancy, unspecified, third trimester (principal); Z3A.34 34 weeks gestation of pregnancy
CPT/HCPCS: 59025

== ENCOUNTER 2018-03-24 03:31 | Inpatient (IN) | payer MEDICAID, OTHER ==
[2018-03-24] MEDS ORDERED: PENICILLIN G-K 5 MILLION UNIT VIAL ONE ×4 (03:40→16:27)
[2018-03-24] MEDS ORDERED: PENICILLIN G POTASSIUM 5,000,000 UNIT in DEXTROSE 5%-WATER 100 ML IV ONE (04:15)
[2018-03-24] MEDS ORDERED: RINGERS SOLUTION,LACTATED 1,000 ML IV ONE (04:15)
[2018-03-24 04:23] LABS: APPEARANCE,URINE CLEAR; BILIRUBIN,URINE NEGATIVE (NEGATIVE); COLOR,URINE LIGHT YELLOW; GLUCOSE, URINE NEGATIVE (NEGATIVE); KETONES,URINE NEGATIVE (NEGATIVE); URINE SPECIFIC GRAVITY 1.014
[2018-03-24] MEDS: RINGERS SOLUTION,LACTATED 1,000 ML IV PRN ×5 (04:23→11:37)
[2018-03-24 04:24] LABS: LEUKOCYTE ESTERASE,URINE SMALL (NEGATIVE); NITRITE,URINE NEGATIVE (NEGATIVE); PROTEIN,URINE 100 mg/dL (NEGATIVE); UROBILINOGEN,URINE NEGATIVE mg/dL (<2.0)
[2018-03-24 04:37] LABS: URINE AMPHETAMINES SCREEN NEGATIVE; URINE BARBITURATES SCREEN NEGATIVE; URINE BENZODIAZEPINES SCREEN NEGATIVE; URINE COCAINE SCREEN NEGATIVE; URINE MARIJUANA (THC) SCREEN NEGATIVE; URINE METHADONE SCREEN NEGATIVE; URINE PHENCYCLIDINE SCREEN NEGATIVE
[2018-03-24 04:41] LABS: ABSOLUTE EOSINOPHILS # (AUTO) 0.1 10^3/uL (0.0-0.6); ABSOLUTE LYMPHOCYTES (AUTO) 1.9 10^3/uL (0.5-4.7); ABSOLUTE MONOCYTES (AUTO) 0.8 10^3/uL (0.1-1.4); BASOPHILS % (AUTO) 0.5 % (0-2); HEMATOCRIT 37.8 % (36.0-47.0); HEMOGLOBIN 12.8 g/dL (12.0-15.5); LYMPHOCYTES % (AUTO) 21.2 % (13-45); MEAN CORPUSCULAR HEMOGLOBIN 27.5 pg (27.0-33.4); MEAN CORPUSCULAR HGB CONC 33.9 g/dL (32.0-36.0); MEAN CORPUSCULAR VOLUME 81 fl (80-97); MONOCYTES % (AUTO) 9.4 % (3-13); PLATELET COUNT 145 10^3/uL (150-450); RED BLOOD COUNT 4.66 10^6/uL (3.72-5.28); RED CELL DISTRIBUTION WIDTH 13.3 % (11.5-14.0); SEGMENTED NEUTROPHILS % (AUTO) 67.9 % (42-78); TOTAL CELLS COUNTED % (AUTO) 100 %; WHITE BLOOD COUNT 8.8 10^3/uL (4.0-10.5)
[2018-03-24 06:45] LABS: ALANINE AMINOTRANSFERASE 23 U/L (9-52); ALKALINE PHOSPHATASE 157 U/L (38-126); ANION GAP 8 (5-19); ASPARTATE AMINO TRANSFERASE 22 U/L (14-36); BILIRUBIN,DIRECT 0.3 mg/dL (0.0-0.4); BILIRUBIN,TOTAL 0.5 mg/dL (0.2-1.3); BLOOD UREA NITROGEN 5 mg/dL (7-20); CARBON DIOXIDE 22 mmol/L (22-30); CHLORIDE 107 mmol/L (98-107); GLUCOSE 91 mg/dL (75-110); POTASSIUM 4.3 mmol/L (3.6-5.0); SODIUM 137.2 mmol/L (137-145); URIC ACID 5.3 mg/dL (2.5-6.2)
[2018-03-24] MEDS ORDERED: PROMETHAZINE HCL INJ 25 MG/1 ML VIAL IV ONE (07:11)
[2018-03-24] MEDS ORDERED: NALBUPHINE HCL INJ 10 MG/1 ML AMPULE INJ ONE (07:11)
[2018-03-24] MEDS ORDERED: OXYTOCIN/NORMAL SALINE 20 UNIT/1,000 ML RTUINJ IV PRN (07:12)
[2018-03-24] MEDS ORDERED: OXYTOCIN/NORMAL SALINE 20 UNIT/1,000 ML RTUINJ ONE (07:37)
[2018-03-24] MEDS: PENICILLIN G POTASSIUM 2,500,000 UNIT in DEXTROSE 5%-WATER 50 ML IV SCH ×4 (07:56→23:37)
--- NOTE | 2018-03-24 08:17 | Admission Physical ---
Datetime Report Generated by CPN: 03/24/2018 08:17 CURRENT ADMISSION Chief Complaint: Suspected Ruptured Membranes Indication for Induction: Not Applicable Admit Impression : Term, Intrauterine ; Ruptured Membranes Admit Plan: Admit to Unit; Initiate Labor Augmentation Protocol Admit Plan- Other: Hx 22 wk PTL and Delivery PPH req Corby balloon Cerclage removed 37wks at [facility] GDM A2--glyburide 70 lb Wt gain ALLERGIES Medication Allergies: No Medication Allergies: No Known Allergies (03/24/2018) Latex: No Latex Allergies Food Allergies: denies Environmental Allergies: denies OBSTETRICAL HISTORY EDC: 04/06/2018 00:00 : 2 Para: 0 Term: 0 : 1 SAB: 0 IAB: 0 Livin Gestational Diabetes: Yes Rh Sensitization: No Incompetent Cervix: Yes BECKY: No Infertility: No ART Treatment: No Uterine Anomaly: No IUGR: No Hx Previous C/S: No Macrosomia: No Hx Loss/Stillborn: No PIH: No Hx : No Placenta Previa/Abruption: No Depression/PP Depression: No PTL/PROM: Yes Post Hemorrhage: No Current Procedures: Ultrasound; NST; BPP Obstetrical History Comments: g1- loss at 23-24 weeks g2-cerclage removed, GDMA2 on glyburide SEE RECORDS Alcohol: No Marijuana : No Cocaine: No Other Illicit Drugs: No Cigarettes: Never Smoker. [id number] MEDICAL HISTORY Diabetes: Yes Diabetes Type: Gestational Diabetes Blood Transfusion: Yes Pulmonary Disease (Asthma, TB): No Breast Disease: No Hypertension: No Vector Control Assistant Surgery: No Heart Disease: No Hosp/Surgery: Yes Autoimmune Disorder: No Anesthetic Complications: No Kidney Disease: No Abnormal Pap Smear: No Neuro/Epilepsy: No Psychiatric Disorders: No Other Medical Diseases: No Hepatitis/Liver Disease: No Significant Family History: No Varicosities/Phlebitis: No Trauma/Violence : No Thyroid Dysfunction: No Medical History Comments: childbirth x 1 (loss at 23-24 weeks), blood transfusion during loss of first baby, anemia INFECTIOUS HISTORY Gonorrhea: No Genital Herpes: No Chlamydia: No Tuberculosis: No Syphilis: No Hepatitis: No HIV/AIDS Exposure: No Rash or Viral Illness: No HPV: No Infectious History Comments: Chlamydia 2015 PHYSICAL EXAM General: Normal HEENT: Deferred Neurologic: Normal Thyroid: Deferred Heart: Normal Lungs: Normal Breast: Deferred Back: Deferred Abdomen: Normal Genitourinary Exam: Deferred Extremities: Normal DTRs: Deferred Pelvic Type: Adequate Physical Exam Comments: Cervical exam per RN Vital Signs: Reviewed VAGINAL EXAM Dilatation: 2 MEMBRANES Membranes: Intact FETUS A EGA: 38.1 Monitoring: External US FHR- Baseline: 138 Variability: Moderate 6-25bpm Decelerations: None FHR Category: Category I Presentation: Vertex Admit Comment: GBS prophylaxsis started Pitocin started PLANS FOR LABOR AND DELIVERY Labor and Delivery: None Pain Management: Natural Other Pain Management Plans: open to other options Feeding Preference: Breast Benefit of Breast Feed Discussed: Yes Circumcision: N/A INFORMED CONSENT Assignment: Ese Mei MD Signature: with User ID: [email or web address] : with User ID: [email or web address]
--- NOTE | 2018-03-24 09:41 | L&D Progress Notes ---
PROGRESS NOTES Datetime Report Generated by CPN: 03/24/2018 09:41 PROGRESS NOTE Impression Other: Pain 5/5 Procedures: Sterile Vag Exam Plan: Continue Present Management Vital Signs : Reviewed Comment: Pt asking for epidural VAGINAL EXAM Dilatation: 4 Dilatation: 2 Effacement: 70 Station: -2 MEMBRANES Membranes: Ruptured Amniotic Fluid Color: Clear FETUS A FHR - Baseline: 138 Monitoring: External US Variability: Moderate 6-25bpm : 38.1 : 38.1 Presentation: Vertex SIGNATURE SIGNATURE: [id number];10,[id number];13,[id number] SIGNATURE: 13,[id number];10,[id number];14,[id number] SIGNATURE: [id number];10,[id number] Assignment: Ese Mei MD Signature: with User ID: [email or web address] : with User ID: [email or web address]
[2018-03-24] MEDS ORDERED: EPHEDRINE SULFATE INJ 50 MG/1 ML AMPULE ONE (09:50)
[2018-03-24] MEDS ORDERED: BUPIVACAINE HCL 0.5 % INJ/PF 30 ML SDV ONE (09:51)
[2018-03-24] MEDS ORDERED: FENTANYL/BUPIVACAINE/NS/PF 300 MCG/150 ML RTUINJ EPI ONE (09:51)
[2018-03-24] MEDS ORDERED: MISOPROSTOL 0.2 MG TABLET ONE (16:25)
[2018-03-24] MEDS ORDERED: LIDOCAINE 1% INJ-PF (10 MG/ML) 30 ML SDV ONE (16:26)
[2018-03-24] MEDS ORDERED: AMPICILLIN SOD INJ 1 GM VIAL ONE (17:17)
[2018-03-24] MEDS ORDERED: GENTAMICIN SULFATE INJ 80 MG/2 ML VIAL ONE ×2 (17:18→17:21)
[2018-03-24] MEDS ORDERED: ACETAMINOPHEN 325 MG TABLET ONE (17:18)
[2018-03-24] MEDS ORDERED: GENTAMICIN SULFATE INJ 80 MG/2 ML VIAL IV ONE ×2 (17:21→18:00)
[2018-03-24] MEDS ORDERED: AMPICILLIN SOD INJ 1 GM VIAL IM SCH (18:00)
[2018-03-24] MEDS ORDERED: GENTAMICIN SULFATE INJ 80 MG/2 ML VIAL IM SCH (22:00)
[2018-03-24] MEDS ORDERED: OXYTOCIN/NORMAL SALINE 1,000 ML IV PRN (23:01)
[2018-03-24] MEDS ORDERED: ACETAMINOPHEN WITH CODEINE #3 TABLET PO PRN ×2 (23:01)
[2018-03-24] MEDS ORDERED: MEASLES,MUMPS&RUBELLA VACC/PF 0.5 ML VIAL SUBCUT PRN (23:01)
[2018-03-24] MEDS ORDERED: DIPH/PERTUSS(ACELL)/TETANUS VAC/PF 0.5 ML SYR (>=10YO) IM PRN (23:01)
[2018-03-24] MEDS ORDERED: DIBUCAINE 1% OINTMENT 28 GM TP PRN (23:01)
[2018-03-24] MEDS ORDERED: ZOLPIDEM TARTRATE 5 MG TABLET PO PRN (23:01)
[2018-03-24] MEDS ORDERED: BENZOCAINE/MENTHOL AEROSOL SPRAY 56 ML TOP PRN (23:01)
[2018-03-24] MEDS ORDERED: GLYCERIN/WITCH HAZEL LEAF 1 EACH MED..PAD TP PRN (23:06)
[2018-03-24] MEDS ORDERED: PSEUDOEPHEDRINE HCL 30 MG TABLET PO PRN (23:06)
[2018-03-24] MEDS ORDERED: PROMETHAZINE HCL INJ 25 MG/1 ML VIAL IV PRN (23:06)
[2018-03-24] MEDS ORDERED: PROMETHAZINE HCL 25 MG TABLET PO PRN (23:06)
[2018-03-24] MEDS ORDERED: PROMETHAZINE HCL 25 MG SUPP.RECT PR PRN (23:06)
[2018-03-24] MEDS ORDERED: NA PHOS,M-B/NA PHOS,DI-BA (ADULT) 133 ML ENEMA PR PRN (23:06)
[2018-03-24] MEDS ORDERED: DIPHENHYDRAMINE HCL 25 MG CAPSULE PO PRN (23:06)
[2018-03-24] MEDS ORDERED: ACETAMINOPHEN 650 MG SUPP.RECT PR PRN (23:06)
[2018-03-24] MEDS ORDERED: MAGNESIUM HYDROXIDE SUSP 30 ML UDCUP PO PRN (23:06)
[2018-03-25] MEDS ORDERED: GENTAMICIN SULFATE INJ 80 MG/2 ML VIAL IM SCH (02:00)
[2018-03-25] MEDS: IBUPROFEN 800 MG TABLET PO SCH ×3 (05:31→21:40)
--- NOTE | 2018-03-25 07:46 | Delivery Summary ---
Del Sum A-C Datetime Report Generated by CPN: 03/24/2018 23:32 DELIVERY PERSONNEL DELIVERY PERSONNEL: [id number] Delivery Doctor:: Ese Mei MD Labor and Delivery Nurse:: Scott Fisher RNwind energy engineer Nurse:: Adela Holland RN Neonatal Nurse Practitioner:: Jenna Lynch FINANCIAL RECORDING CLERK Nursery Nurse:: Adela Walters RN Nursery Nurse:: Olga Lidia Blanc RN Can Conveyor Feeder/CULLET WASHER: Evelin Kaiser ST Additional Personnel: : Torie Zimmer RN MATERNAL INFORMATION Delivery Anesthesia: Epidural Medications After Delivery: Pitocin Drip 20 Units/1000ml NSS Maternal Complications: Chorioamnionitis; Other Complication Details: gdma2 on glyburide Provider Comments: of a viable at 2070 with an OP with loose nuchal cord x 1 presentation; preparation for vacuum assistance with placement on head, but not pumped and immediately removed. APGARS 7@1, 9@ 5 ; right mediolateral episiotomy given with small extension. LABOR SUMMARY EDC: 04/06/2018 00:00 No. Babies in Womb: 1 Attempted: No Labor Anesthesia: Epidural LABOR INFORMATION Reason for Induction: Not Applicable Onset of Labor: 03/24/2018 09:31 Complete Dilatation: 03/24/2018 17:00 Oxytocin: Augmentation Group B Beta Strep: positive Antibiotics # of Doses: Pcn- 4 Amp-1 Gent-1 Antibiotics Time of Last Dose: Pcn-1630 Amp-1729 Gent-1754 Name of Antibiotic Given: PCN, AMP, GENT Steroids Given: None Reason Steroids Not Administered: Not Applicable MEMBRANES Membranes Rupture Method: Spontaneous Rupture of Membranes: 03/24/2018 02:45 Length of Rupture (hr): 17.70 Amniotic Fluid Color: Clear Amniotic Fluid Amount: Small Amniotic Fluid Odor: Normal STAGES OF LABOR Stage 1 hr: 7 Stage 1 min: 29 Stage 2 hr: 3 Stage 2 min: 27 Stage 3 hr: 0 Stage 3 min: 3 Total Time in Labor hr: 10 Total Time in Labor min: 59 VAGINAL DELIVERY Episiotomy: Right Mediolateral Laceration Extension #1: Second Degree Laceration Repair: Yes Laceration Repair Note: 3-0 vicryl used to repair the right mediolateral episiotomy. There was mild extension. Sponge Count Correct: N/A Sharps Count Correct: Yes CSECTION DELIVERY Primary Indication: N/A Secondary Indication: N/A CSection Incidence: N/A Labor: N/A Elective: N/A CSection Incision: N/A BABY A INFORMATION Delivery Date/Time: 03/24/2018 20:27 Method of Delivery: Vaginal Born in Route : No : N/A Forceps: N/A Vacuum Extraction: Successful Shoulder Dystocia : No ASSISTED DELIVERY BABY A Indication for Assisted Delivery: prolonged Catheter Prior to Procedure: No Vacuum Number of Pulls: 0 Vacuum Number of PopOffs: 0 Reduce Pressure btwn Ctx: N/A Vacuum Guide: KIWI Total Time Vacuum Applied: 1 Vacuum/Forceps Comment: Kiwi was applied but no pulls were done and no pressure applied. PRESENTATION/POSITION BABY A Presentation: Cephalic Cephalic Presentation: Vertex Vertex Position: OP Breech Presentation: N/A PLACENTA INFORMATION BABY A Placenta Delivery Time : 03/24/2018 20:30 Placenta Method of Delivery: Spontaneous Placenta Status: Delivered SCORES BABY A Heart Rate 1 min: >100 bpm Resp Effort 1 min: Good Cry Reflex Irritability 1 min: Cough or Sneeze or Pulls Away Muscle Tone 1 min: Some Flexion of Extremities Color 1 min: Blue/Pale Resuscitation Effort 1 min: Tactile Stimulation SCORE 1 MIN: 7 Heart Rate 5 min: >100 bpm Resp Effort 5 min: Good Cry Reflex Irritability 5 min: Cough or Sneeze or Pulls Away Muscle Tone 5 min: Some Flexion of Extremities Color 5 min: Body Muscoy, Extremities Blue Resuscitation Effort 5 min: Tactile Stimulation SCORE 5 MIN: 8 INFORMATION BABY A Gestational Age at Delivery: 38.1 Gestational Status: Early Term- 37- 38.6 Weeks Infant Outcome : Liveborn Infant Condition : Stable Infant Sex: Female IDENTIFICATION BABY A Infant Verification Date/Time: 03/24/2018 20:41 ID Band Number: [id number] Mother's Name Verified: Yes Infant RN Verifying Infant: T. Phillip, RN _ [address] [place], ST WEIGHT/LENGTH BABY A Birthweight (gm): 3860 Infant Weight (lb): 8 Weight (oz): 8 Length (in): 22.00 Length (cm): 55.88 CORD INFORMATION BABY A No. Cord Vessels: 3 Nuchal Cord : Around Neck x1, Loose Cord Blood Taken: Yes-For Eval (Mom's Blood Type - or O+) Suction: Mouth; Nose ASSESSMENT BABY A Infant Complications: Multiple Variable Decels Physical Findings at Delivery: Molding of the Head Respirations: Intercostal Retractions; Sternal Retractions Transferred To: Nursery BABY B INFORMATION : N/A SIGNATURES Signature: with User ID: [email or web address] : I was personally available for consultation and serving as supervising physician for the P.
[2018-03-25 08:30] LABS: HEMOGLOBIN 10.8 g/dL (12.0-15.5); MEAN CORPUSCULAR HEMOGLOBIN 27.9 pg (27.0-33.4); MEAN CORPUSCULAR HGB CONC 33.8 g/dL (32.0-36.0); MEAN CORPUSCULAR VOLUME 83 fl (80-97); PLATELET COUNT 155 10^3/uL (150-450); RED BLOOD COUNT 3.87 10^6/uL (3.72-5.28); RED CELL DISTRIBUTION WIDTH 13.8 % (11.5-14.0); WHITE BLOOD COUNT 13.3 10^3/uL (4.0-10.5)
--- NOTE | 2018-03-25 09:14 | PDOC PROGRESS REPORT ---
Subjective-OB Progress Note for:: 03/25/18 Subjective: 27yo G2 now P2 L1 s/p ppd1. Ambulating and voiding without difficulty. Reports minimal bleeding and very mild discomfort at episiotomy site. Denies concerns at this time. and supplementing with formula due to low blood sugars in baby Physical Exam (OB) Vital Signs: Temp Pulse Resp BP Pulse Ox 98.1 F 65 18 141/79 H 97 03/24/18 22:55 03/24/18 22:55 03/24/18 22:55 03/24/18 22:55 03/24/18 22:55 Intake & Output 03/24/18 03/25/18 03/26/18 06:59 06:59 06:59 Intake Total 194 2958 Balance 194 2958 Weight 105 kg - General General Appearance: Appears well, Other - bonding well with baby In distress: None - PIH/Pre-Eclampsia Headache: Absent Epigastric Pain: No Visual Changes: No - Episiotomy/Laceration Site Condition: Well Approximated - Lochia Lochia Amount: Small 10-25 ml Lochia Color: Rubra/Red - Abdomen Description: Soft, Round Hernia Present: No Fundal Description: Firm, Midline Fundal Height: u/u - u/2 - Respiratory Respiratory Status: No respiratory distress - Extremities Upper extremity: Normal inspection Lower extremities: Normal inspection - Neurological Cognition: Normal Orientation: AAOx4 - Psychological Associated symptoms: Normal affect, Normal mood Objective-Diagnostic Laboratory: 03/25/18 07:37 03/24/18 04:28 03/25/18 07:37 WBC 13.3 H RBC 3.87 Hgb 10.8 L Hct 32.0 L MCV 83 MCH 27.9 MCHC 33.8 RDW 13.8 Plt Count 155 Assessment and Plan(PN) - Assessment and Plan (1) Vaginal delivery Is this a current diagnosis for this admission?: Yes Plan: routine pp care (2) Discomfort at episiotomy site Is this a current diagnosis for this admission?: Yes Plan: continue NSAIDs and comfort care, monitor for s/s of infection (3) Premature rupture of membranes, antepartum Is this a current diagnosis for this admission?: Yes Plan: delivered (4) Acute blood loss anemia Is this a current diagnosis for this admission?: Yes Plan: increase dietary iron and feso4 BID, monitor for s/s of decompensation. hx of pph (5) GBS (group B Streptococcus carrier), +RV culture, currently Is this a current diagnosis for this admission?: Yes Plan: treated x4 dose - Time Spent with Patient Time with patient: Less than 15 minutes Medications reviewed and adjusted accordingly: Yes - Disposition Anticipated Discharge: Home Within: within 24 hours
[2018-03-25] MEDS: FAMOTIDINE 20 MG TABLET PO SCH ×2 (11:52→21:39)
[2018-03-25] MEDS: DOCUSATE SODIUM 100 MG CAPSULE PO SCH ×2 (11:52→18:32)
[2018-03-25] MEDS: FERROUS SULFATE 325 MG TABLET PO SCH ×2 (11:52→18:32)
[2018-03-25] MEDS: PRENATAL VITAMIN W DHA CAPSULE PO SCH (11:52)
[2018-03-25] MEDS: SENNOSIDES/DOCUSATE 8.6-50 MG 1 EACH TABLET PO SCH (11:52)
[2018-03-25] MEDS ORDERED: MEASLES,MUMPS&RUBELLA VACC/PF 0.5 ML VIAL SUBCUT PRN (19:30)
[2018-03-25] MEDS ORDERED: PROMETHAZINE HCL INJ 25 MG/1 ML VIAL IV PRN (19:30)
[2018-03-25] MEDS ORDERED: DIPH/PERTUSS(ACELL)/TETANUS VAC/PF 0.5 ML SYR (>=10YO) IM PRN (19:30)
[2018-03-26] MEDS: IBUPROFEN 800 MG TABLET PO SCH ×2 (06:00→14:41)
[2018-03-26 08:54] VITALS: BP 120/73
--- NOTE | 2018-03-26 08:58 | PDOC PROGRESS REPORT ---
Subjective-OB Progress Note for:: 03/26/18 Subjective: Doing well, ready to go home, baby not going until after 6 Physical Exam (OB) Vital Signs: Temp Pulse Resp BP Pulse Ox 97.9 F 83 16 120/73 100 03/26/18 08:00 03/26/18 08:00 03/26/18 08:00 03/26/18 08:00 03/26/18 08:00 Intake & Output 03/25/18 03/26/18 03/27/18 06:59 06:59 06:59 Intake Total 2958 1000 Balance 2958 1000 - PIH/Pre-Eclampsia DTR's: 1 + Clonus: Negative Headache: Absent Epigastric Pain: No Visual Changes: No - Lochia Lochia Amount: Small 10-25 ml Lochia Color: Rubra/Red - Abdomen Description: Tender, Soft Hernia Present: No Fundal Description: Firm, Midline Fundal Height: u/u - u/2 Objective-Diagnostic Laboratory: 03/25/18 07:37 03/24/18 04:28 Assessment and Plan(PN) - Assessment and Plan (1) Vaginal delivery Is this a current diagnosis for this admission?: Yes (2) Acute blood loss anemia Is this a current diagnosis for this admission?: Yes (3) GBS (group B Streptococcus carrier), +RV culture, currently Is this a current diagnosis for this admission?: Yes (4) Premature rupture of membranes, antepartum Is this a current diagnosis for this admission?: Yes - Time Spent with Patient Time with patient: Less than 15 minutes Medications reviewed and adjusted accordingly: Yes - Disposition Anticipated Discharge: Home Within: Other - home today
--- NOTE | 2018-03-26 09:04 | PDOC DISCHARGE SUMMARY ---
Final Diagnosis Discharge Date: 03/26/18 - Final Diagnosis (1) Vaginal delivery Is this a current diagnosis for this admission?: Yes (2) Acute blood loss anemia Is this a current diagnosis for this admission?: Yes (3) GBS (group B Streptococcus carrier), +RV culture, currently Is this a current diagnosis for this admission?: Yes (4) Premature rupture of membranes, antepartum Is this a current diagnosis for this admission?: Yes Discharge Data - Discharge Medication Home Medications: Pnv No.95/Ferrous Fum/Folic AC [ Vitamins Tablet] 1 tab PO DAILY Ferrous Sulfate [Feosol 325 mg Tablet] 325 mg PO BID tablet 03/26/18 Gestational Age: 38.1 Reason(s) for Admission: Onset of Labor, Gestional Diabetes, Group B Strep Positive Admission Note: augmentation Procedures: Ultrasound Intrapartum Procedure(s): Vacuum Extraction, Episiotomy Complication(s): Laceration-Perineal - Diagnosis Test Laboratory: Temp Pulse Resp BP Pulse Ox 97.9 F 83 16 120/73 100 03/26/18 08:00 03/26/18 08:00 03/26/18 08:00 03/26/18 08:00 03/26/18 08:00 03/24/18 03/24/18 03/25/18 03:43 04:28 07:37 RBC 4.66 3.87 Hgb 12.8 10.8 L Hct 37.8 32.0 L Urine Opiates Screen NEGATIVE - Discharge information/Instructions Discharge Activity: Activity As Tolerated, No Lifting Over 10 Pounds, No Lifting /Push/Pulling, Pelvic Rest Discharge Diet: As Tolerated, Regular Disposition: HOME, SELF-CARE Follow up with: [facility] in: 2, 4, Weeks
[2018-03-26] MEDS: SENNOSIDES/DOCUSATE 8.6-50 MG 1 EACH TABLET PO SCH (10:53)
[2018-03-26] MEDS: FAMOTIDINE 20 MG TABLET PO SCH (10:53)
[2018-03-26] MEDS: PRENATAL VITAMIN W DHA CAPSULE PO SCH (10:53)
[2018-03-26] MEDS: DOCUSATE SODIUM 100 MG CAPSULE PO SCH (10:53)
[2018-03-26] MEDS: FERROUS SULFATE 325 MG TABLET PO SCH (10:53)
== END 2018-03-26 16:00 | disposition home or self-care (01) | DRG 775 ==
LOC: LC 03:31 → LR 04:17 → 2S 22:42
PROVIDERS: ADMIT Obstetrics & Gynecology; ATTEND Obstetrics & Gynecology
PROC: 10E0XZZ Delivery of Products of Conception, External Approach (ICD-10-PCS; principal; 2018-03-24)
PROC: 0KQM0ZZ Repair Perineum Muscle, Open Approach (ICD-10-PCS; 2018-03-24)
DX: O70.1 Second degree perineal laceration during delivery (principal); Z37.0 Single live birth; D62 Acute posthemorrhagic anemia; O42.02 Full-term premature rupture of membranes, onset of labor within 24 hours of rupture; O99.02 Anemia complicating childbirth; Z3A.38 38 weeks gestation of pregnancy; O99.824 Streptococcus B carrier state complicating childbirth; O24.429 Gestational diabetes mellitus in childbirth, unspecified control; O69.81X0 Labor and delivery complicated by cord around neck, without compression, not applicable or unspecified
CPT/HCPCS: 36415; 80053; 80307; 81005; 83615; 84112; 84550; 85025; 85027; 86592; 86850; 86900; 86901; 94760; J0290; J1580; J2540; J2590; J3010; J3490

== ENCOUNTER 2018-11-24 22:21 | Emergency (ER) | payer MEDICAID ==
[2018-11-24] MEDS ORDERED: HALOPERIDOL LACTATE INJ 5 MG/1 ML VIAL IM ONE (22:57)
[2018-11-24] MEDS ORDERED: LORAZEPAM INJ 2 MG/1 ML VIAL IM ONE (22:57)
[2018-11-24] MEDS ORDERED: LORAZEPAM INJ 2 MG/1 ML VIAL ONE (22:58)
[2018-11-24] MEDS ORDERED: HALOPERIDOL LACTATE INJ 5 MG/1 ML VIAL ONE (22:58)
[2018-11-25 00:23] LABS: ABSOLUTE LYMPHOCYTES (AUTO) 1.5 10^3/uL (0.5-4.7); ABSOLUTE MONOCYTES (AUTO) 0.5 10^3/uL (0.1-1.4); ABSOLUTE NEUT (AUTO) 4.8 10^3/uL (1.7-8.2); BASOPHILS % (AUTO) 0.5 % (0-2); EOSINOPHILS % (AUTO) 0.5 % (0-6); HEMATOCRIT 41.8 % (36.0-47.0); HEMOGLOBIN 13.9 g/dL (12.0-15.5); MEAN CORPUSCULAR HEMOGLOBIN 27.9 pg (27.0-33.4); MEAN CORPUSCULAR HGB CONC 33.3 g/dL (32.0-36.0); MEAN CORPUSCULAR VOLUME 84 fl (80-97); MONOCYTES % (AUTO) 7.8 % (3-13); PLATELET COUNT 208 10^3/uL (150-450); RED BLOOD COUNT 4.98 10^6/uL (3.72-5.28); RED CELL DISTRIBUTION WIDTH 13.1 % (11.5-14.0); SEGMENTED NEUTROPHILS % (AUTO) 69.2 % (42-78); TOTAL CELLS COUNTED % (AUTO) 100 %
[2018-11-25 00:54] LABS: ALANINE AMINOTRANSFERASE 26 U/L (9-52); ALBUMIN 5.3 g/dL (3.5-5.0); ALKALINE PHOSPHATASE 73 U/L (38-126); ANION GAP 16 (5-19); ASPARTATE AMINO TRANSFERASE 42 U/L (14-36); BILIRUBIN,DIRECT 0.3 mg/dL (0.0-0.4); BILIRUBIN,TOTAL 1.4 mg/dL (0.2-1.3); BLOOD UREA NITROGEN 11 mg/dL (7-20); CALCIUM 10.3 mg/dL (8.4-10.2); CARBON DIOXIDE 22 mmol/L (22-30); CHLORIDE 105 mmol/L (98-107); GLUCOSE 91 mg/dL (75-110); POTASSIUM 3.2 mmol/L (3.6-5.0); SODIUM 142.9 mmol/L (137-145); TOTAL PROTEIN 8.6 g/dL (6.3-8.2)
[2018-11-25 01:06] LABS: ACETAMINOPHEN < 10 ug/mL (10-30); ALCOHOL < 10 mg/dL (NONE DETECTED); SALICYLATE < 1.0 mg/dL (2.0-20.0)
--- NOTE | 2018-11-25 01:11 | ER Document Report ---
Addendum entered and electronically signed by MALGORZATA BOURNE MD 11/26/18 12:35: Discharge - Discharge Clinical Impression: Anxiety, Hallucination, Cannabis abuse, unspecified trauma disorder Condition: Stable Disposition: HOME, SELF-CARE Additional Instructions: You have been evaluated both medical and behavioral health teams have been deemed appropriate for discharge. You have been provided prescriptions for Zyprexa 2.5 mg twice daily and BuSpar 5 mg twice daily; please take as directed. You have an appointment with [facility] on 12/02/2018 at 9:00am. Please arrive 30 minutes early to fill out paperwork. You have also been provided a local resource list of area providers including mobile crisis contact information. Altered Mental Status An altered mental status is a change in the normal functioning of the brain. This alteration of function can range from minor decreased brain function with some forgetfulness and confusion to complete loss of consciousness and coma. There are many possible causes of an altered mental status and include brain injuries such as trauma or strokes, problems with oxygen supply to the brain, fever and infections of the brain and/or elsewhere in the body, metabolic abnormalities such as low or high blood sugar, overdoses or excessive medication ingestion, and mental and psychiatric illnesses. Sometimes the altered mental status resolves and a definite cause is not determined. If a cause for your altered mental status was found, it has likely been corrected. Your evaluation has not shown any condition that requires that you be admitted to the hospital. It is believed that you are safe to leave and return to your home. If you have a return of your symptoms, you should return for re-evaluation. Unspecified Trauma Disorder You seem to have an unspecified trauma disorder. Trauma cause chronic anxiety, sleeping problems, social withdrawal, and drug abuse. It can occur following a traumatic personal experience such as an accident, rape, assault, or of a loved one, or after experiencing a war or natural disaster. Symptoms may be delayed for days or even years. Emotional numbing, the inability to express grief, is usually the earliest sign. There may be apathy or agitation, aggression, and inability to perform ordinary tasks. Often there are frightening nightmares and sudden, intruding memories of the trauma. Panic attacks and feelings of guilt are common. Alcohol and drug use make post- traumatic stress symptoms worse. Medication may be temporarily necessary to combat anxiety, panic attacks, and depression. Medicine should not be considered a "cure." You must deal with the trauma and prepare to go on. Group therapy is often helpful. This helps you "talk through" the problem with others who share your symptoms. We can provide you with an appropriate referral. Prescriptions: Buspirone HCl [Buspar 5 mg Tablet] 1 tab PO DAILY #20 tab Olanzapine [Zyprexa 2.5 Mg Tablet] 2.5 mg PO BID #20 tablet Referrals: [facility] [Provider Group] - 12/02/18 9:00 am Addendum entered and electronically signed by BREA CHARLES LCSWA 11/26/18 12:20: Discharge - Discharge Clinical Impression: Anxiety, Hallucination, Cannabis abuse, unspecified trauma disorder Condition: Stable Disposition: HOME, SELF-CARE Additional Instructions: You have been evaluated both medical and behavioral health teams have been deemed appropriate for discharge. You have been provided prescriptions for Zyprexa 2.5 mg twice daily and BuSpar 5 mg twice daily; please take as directed. You have an appointment with [facility] on 12/02/2018 at 9:00am. Please arrive 30 minutes early to fill out paperwork. You have also been provided a local resource list of area providers including mobile crisis contact information. Altered Mental Status An altered mental status is a change in the normal functioning of the brain. This alteration of function can range from minor decreased brain function with some forgetfulness and confusion to complete loss of consciousness and coma. There are many possible causes of an altered mental status and include brain injuries such as trauma or strokes, problems with oxygen supply to the brain, fever and infections of the brain and/or elsewhere in the body, metabolic abnormalities such as low or high blood sugar, overdoses or excessive medication ingestion, and mental and psychiatric illnesses. Sometimes the altered mental status resolves and a definite cause is not determined. If a cause for your altered mental status was found, it has likely been corrected. Your evaluation has not shown any condition that requires that you be admitted to the hospital. It is believed that you are safe to leave and r eturn to your home. If you have a return of your symptoms, you should return for re-evaluation. Unspecified Trauma Disorder You seem to have an unspecified trauma disorder. Trauma cause chronic anxiety, sleeping problems, social withdrawal, and drug abuse. It can occur following a traumatic personal experience such as an accident, rape, assault, or of a loved one, or after experiencing a war or natural disaster. Symptoms may be delayed for days or even years. Emotional numbing, the inability to express grief, is usually the earliest sign. There may be apathy or agitation, aggression, and inability to perform ordinary tasks. Often there are frightening nightmares and sudden, intruding memories of the trauma. Panic attacks and feelings of guilt are common. Alcohol and drug use make post- traumatic stress symptoms worse. Medication may be temporarily necessary to combat anxiety, panic attacks, and depression. Medicine should not be considered a "cure." You must deal with the trauma and prepare to go on. Group therapy is often helpful. This helps you "talk through" the problem with others who share your symptoms. We can provide you with an appropriate referral. Referrals: [facility] [Provider Group] - 12/02/18 9:00 am Original Note: ED General - General Chief Complaint: Psych Problem Stated Complaint: PSYCH Time Seen by Provider: 11/24/18 22:44 Notes: Patient is a 28-year-old female who presents with complaints of severe anxiety. Patient is brought in by family. Unclear exactly what is going on. Patient's had initially brought in her child to be checked out. Actually just saw her child yesterday after she may have fallen floor. Child was fine and was discharged home. According to the triage nurse the child's father showed up and then took the child away and then they took the child's name out of the system because the child's father said that the patient has been hallucinating and needs mental help. Has been is no longer here for me to speak to. Patient is very anxious. She keeps saying "I am tripping". She does admit to smoking marijuana but says she does not tolerate a basis. She denies any other drugs. When asked if she has a history of mental health I cannot get a straight answer. She is she is hard to keep on subject when talking to her. Denies any recent fevers or infections. She denies headache. She says she is unsure if she is depressed. She denies being homicidal. TRAVEL OUTSIDE OF THE [place] IN LAST 30 DAYS: No - Related Data Allergies/Adverse Reactions: No Known Allergies Allergy (Verified 03/24/18 04:47) Past Medical History - Social History Smoking Status: Unknown if Ever Smoked Frequency of alcohol use: None Drug Abuse: None Family History: CAD, CVA, DM, Hyperlipidemia, Hypertension, Malignancy, Thyroid Disfunction Patient has suicidal ideation: No Patient has homicidal ideation: No Renal/ Medical History: Reports: Hx Pelvic Inflammatory Disease - Chlamydia. Denies: Hx Peritoneal Dialysis Past Surgical History: Reports: Hx Oral Surgery - [place] teeth - Immunizations Hx Diphtheria, Pertussis, Tetanus Vaccination: Yes Review of Systems - Review of Systems Notes: My Normal Review Basic REVIEW OF SYSTEMS: CONSTITUTIONAL : Denies fever, chills, or sweats. Denies recent illness. EENT: Denies eye, ear, throat, or mouth pain or symptoms. Denies nasal or sinus congestion. CARDIOVASCULAR: Denies chest pain. RESPIRATORY: Denies cough, cold, or chest congestion. Denies shortness of breath, difficulty breathing, or wheezing. GASTROINTESTINAL: Denies abdominal pain. Denies nausea, vomiting, or diarrhea. MUSCULOSKELETAL: Denies neck or back pain or joint pain or swelling. SKIN: Denies rash or skin lesions. NEUROLOGICAL: Denies altered mental status or loss of consciousness. Denies headache. Denies weakness or paralysis or loss of use of either side. Denies problems with gait or speech. Denies sensory or motor loss. PSYCHIATRIC: Very anxious. Patient says she is unsure if she has been truly hallucinating. ALL OTHER SYSTEMS REVIEWED AND NEGATIVE. Physical Exam - Vital signs Vitals: Temp Pulse Resp BP Pulse Ox 97.4 F 56 L 20 108/65 97 11/25/18 00:46 11/25/18 00:46 11/25/18 00:46 11/25/18 00:46 11/25/18 00:46 - Notes Notes: General Appearance: Sitting in bed and having difficulty staying still. She is very anxious. She is difficult to keep on topic. Vitals: reviewed, See vital signs table. Head: no swelling or tenderness to the head Eyes: PERRL, EOMI, Conjuctiva clear Mouth: No decreasd moisture Lungs: No wheezing, No rales, No rhonci, No accessory muscle use, good air exchange bilaterally. Heart: Normal rate, Regular rythm, No murmur, no rub Abdomen: Normal BS, soft, No rigidity, No abdominal tenderness, No guarding, no rebound, no abdominal masses, no organomegaly Extremities: strength 5/5 in all extremities, good pulses in all extremities, no swelling or tenderness in the extremities, no edema. Skin: warm, dry, appropriate color, no rash Neuro: speech clear, oriented x 3, paranoid affect, responds appropriately to questions. symmetric facial movement. Patient moves all extremities without difficulty. Course - Re-evaluation Re-evalutation: 11/25/18 06:14 Patient is currently medically stable for mental health evaluation. Patient's urinalysis does show leukocyte esterase and some white blood cells however does not show any bacteria. Does show epithelial cells. Suggested probably is contaminant. She has no urinary symptoms and therefore we will hold on placing her on antibiotic and send her urine for culture to wait to see what it grows out. Patient does have some hypokalemia for which we gave her potassium. Patient is medically stable for psychiatric evaluation. Dictation of this chart was performed using voice recognition software; therefore, there may be some unintended grammatical errors. - Vital Signs Vital signs: Temp Pulse Resp BP Pulse Ox 97.4 F 56 L 20 108/65 97 11/25/18 00:46 11/25/18 00:46 11/25/18 00:46 11/25/18 00:46 11/25/18 00:46 - Laboratory Result Diagrams: 11/25/18 00:03 11/25/18 00:03 Laboratory results interpreted by me: 11/25/18 11/25/18 00:03 04:15 Potassium 3.2 L Calcium 10.3 H Total Bilirubin 1.4 H AST 42 H Total Protein 8.6 H Albumin 5.3 H Urine Protein 30 H Urine Ketones 80 H Ur Leukocyte Esterase LARGE H Salicylates < 1.0 L Acetaminophen < 10 L - EKG Interpretation by Me Additional EKG results interpreted by me: 11/25/18 01:06 EKG is reviewed and interpreted by me. EKG shows sinus rhythm with rate 51 bpm. Some mild concave up ST segment elevation consistent with early repolarization. No reciprocal ST segment depression. WA interval, QRS duration, QTc intervals are within normal range. No old EKG available for comparison. Discharge - Discharge Clinical Impression: Anxiety, Hallucination Condition: Stable Disposition: PSYCH HOSP/UNIT
[2018-11-25] MEDS ORDERED: POTASSIUM CHLORIDE 10 MEQ CAPSULE.ER PO ONE ×2 (01:13→06:00)
[2018-11-25 05:30] LABS: APPEARANCE,URINE CLOUDY; BILIRUBIN,URINE NEGATIVE (NEGATIVE); COLOR,URINE AMBER; GLUCOSE, URINE NEGATIVE (NEGATIVE); KETONES,URINE 80 mg/dL (NEGATIVE); LEUKOCYTE ESTERASE,URINE LARGE (NEGATIVE); NITRITE,URINE NEGATIVE (NEGATIVE); PROTEIN,URINE 30 mg/dL (NEGATIVE); URINE SPECIFIC GRAVITY 1.033; UROBILINOGEN,URINE NEGATIVE mg/dL (<2.0)
[2018-11-25 06:01] LABS: URINE AMPHETAMINES SCREEN NEGATIVE; URINE BARBITURATES SCREEN NEGATIVE; URINE BENZODIAZEPINES SCREEN NEGATIVE; URINE METHADONE SCREEN NEGATIVE; URINE PHENCYCLIDINE SCREEN NEGATIVE
--- NOTE | 2018-11-25 06:36 | EKG REPORT ---
SEVERITY:- NORMAL ECG - SINUS RHYTHM : Confirmed by: Mati Hook MD 25-Nov-2018 06:34:43
[2018-11-25 06:42] LABS: URINE COCAINE SCREEN NEGATIVE
[2018-11-25 06:43] LABS: URINE MARIJUANA (THC) SCREEN UNCONFIRMED POSITIVE
--- NOTE | 2018-11-25 09:19 | ER Document Report ---
Doctor's Note Notes: 11/25/18 09:18 28-year-old female positive for marijuana with an unclear psychiatric history who presents with some anxiety and confusion. Leukocytes in the urine. Urine culture pending. No abdominal pain, fevers, vomiting. She had stated "I am tripping" when she arrived according to the previous note. Labs otherwise unremarkable. Vital signs are stable.
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
[2018-11-25] MEDS: OLANZAPINE 2.5 MG TABLET PO SCH (17:04)
[2018-11-25] MEDS: BUSPIRONE HCL 10 MG TABLET PO SCH (17:04)
[2018-11-26] MEDS: OLANZAPINE 2.5 MG TABLET PO SCH (09:31)
[2018-11-26] MEDS: BUSPIRONE HCL 10 MG TABLET PO SCH (09:32)
--- NOTE | 2018-11-26 09:42 | ER Document Report ---
Doctor's Note Notes: 11/26/18 09:42 28-year-old female with possible drug ingestion with some tangentiality of speech and some intermittent confusion. No known psychiatric history. Vital signs are stable. Patient denies any acute distress at this time. Vital signs are stable.
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
[2018-11-26 12:56] VITALS: BP 130/81
== END 2018-11-26 13:00 | disposition home or self-care (01) ==
LOC: ER 22:21
DX: F41.9 Anxiety disorder, unspecified (principal); R44.3 Hallucinations, unspecified; F12.10 Cannabis abuse, uncomplicated
CPT/HCPCS: 93005; 99285; 96372; 96374; 36415; 87086; 80307 ×4; 84703; 85025; 80053; 81001; 93010; J1630; J3490 ×4; J2060

== ENCOUNTER 2018-11-28 04:49 | Emergency (ER) | payer MEDICAID ==
--- NOTE | 2018-11-28 05:41 | ER Document Report ---
HPI - HPI Time Seen by Provider: 11/28/18 05:25 Pain Level: Denies Context: Patient is a 28-year-old female that comes to the emergency department for chief complaint of possibly being . She states that she could not sleep all night because she was worried about the possibility of being , she states that she has not had a period since May, she states that she is sexually active. She denies abdominal pain, vaginal bleeding, or any current symptoms. She does have a history of anxiety, she is treated for this and was seen here recently for this. She denies any complaints in regards to this, she states she just needs to know she is . She states that she has had negative urine test in the past with positive serum pregnancies and that she believes this is the only way to know. She is A1. - REPRODUCTIVE LMP: 05/2018 Reproductive: DENIES: : Past Medical History - General Information source: Patient - Social History Smoking Status: Never Smoker Chew tobacco use (# tins/day): No Drug Abuse: Marijuana Lives with: Family Family History: CAD, CVA, DM, Hyperlipidemia, Hypertension, Malignancy, Thyroid Disfunction Patient has suicidal ideation: No Patient has homicidal ideation: No Renal/ Medical History: Reports: Hx Pelvic Inflammatory Disease - Chlamydia. Denies: Hx Peritoneal Dialysis Psychiatric Medical History: Reports: Hx Anxiety Past Surgical History: Reports: Hx Oral Surgery - [place] teeth - Immunizations Hx Diphtheria, Pertussis, Tetanus Vaccination: Yes Vertical Provider Document - CONSTITUTIONAL General Appearance: WD/WN, No Apparent Distress - INFECTION CONTROL TRAVEL OUTSIDE OF THE [place] IN LAST 30 DAYS: No - HEENT HEENT: Atraumatic, Normal ENT Exam, Normocephalic - RESPIRATORY Respiratory: Breath Sounds Normal, No Respiratory Distress - CARDIOVASCULAR Cardiovascular: Regular Rate, Regular Rhythm - GI/ABDOMEN Gastrointestinal: Abdomen Soft, Abdomen Non-Tender. negative: Abdomen Tender - BACK Back: Normal Inspection - MUSCULOSKELETAL/EXTREMETIES Musculoskeletal/Extremeties: MAEW, FROM, Non-Tender - NEURO Level of Consciousness: Awake, Alert, Appropriate Motor/Sensory: No Motor Deficit, No Sensory Deficit - DERM Integumentary: Warm, Dry, No Rash Course - Re-evaluation Re-evalutation: Patient with no symptom complaints other than missed menses. Unremarkable vitals. Soft benign abdomen. Unremarkable physical exam otherwise. Well- appearing patient. Patient persistently asks for serum hCG to be performed, states she will not be able to sleep if this is not performed. As result I did agree to perform this, this was noted to be negative. I provided patient with a copy of her report. Discussed possible causes of missed menstrual cycles, discussed primary care follow-up, discussed return precautions. Patient states satisfaction and agreement with plan. - Vital Signs Vital signs: Temp Pulse Resp BP Pulse Ox 97.4 F 85 18 139/82 H 98 11/28/18 05:02 11/28/18 05:02 11/28/18 05:02 11/28/18 05:02 11/28/18 05:02 Discharge - Discharge Clinical Impression: Missed menses, Anxiety Condition: Stable Disposition: HOME, SELF-CARE Additional Instructions: Your test is negative. Because of missed menstrual cycles follow-up with primary care and possibly with the [facility] [employer] referral for additional evaluation. Return for any concerning symptoms or if something is not right. Referrals: [facility] [Provider Group] - Follow up as needed
[2018-11-28 06:32] VITALS: BP 134/87
== END 2018-11-28 06:32 | disposition home or self-care (01) ==
LOC: ER 04:49
DX: N91.2 Amenorrhea, unspecified (principal); F41.9 Anxiety disorder, unspecified
CPT/HCPCS: 36415; 84702; 99282

== ENCOUNTER 2018-11-29 01:21 | Emergency (ER) | payer MEDICAID ==
[2018-11-29] MEDS ORDERED: MIDAZOLAM 2 MG/2 ML INJ IM ONE (01:33)
[2018-11-29] MEDS ORDERED: HALOPERIDOL LACTATE INJ 5 MG/1 ML VIAL IM ONE ×2 (01:33→14:27)
--- NOTE | 2018-11-29 01:33 | ER Document Report ---
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 Patient is agitated, very combative, unable to engage for history taking. Per EMS, the EMS crew was called out to the house because the patient had apparently stated that she and her family were going to tonight. She then began brandishing a pneumatic jack operator knife and was threatening to commit suicide. The mother contacted 911 and EMS did arrive with police. neighborhood conservation officer on scene Officer Jose Alberto does corroborate EMS provided history. Apparently the patient got to the ambulance bay earlier she ran away. Police were contacted again and found the patient and restrained her bring her back to the emergency department. TRAVEL OUTSIDE OF THE [place] IN LAST 30 DAYS: No - Related Data Allergies/Adverse Reactions: No Known Allergies Allergy (Verified 03/24/18 04:47) Past Medical History - General Information source: Law Enforcement, Emergency Med Personnel Cannot obtain history due to: Mentally challenged, Uncooperative - Social History Smoking Status: Unknown if Ever Smoked Drug Abuse: Marijuana Lives with: Family Family History: CAD, CVA, DM, Hyperlipidemia, Hypertension, Malignancy, Thyroid Disfunction Renal/ Medical History: Reports: Hx Pelvic Inflammatory Disease - Chlamydia. Denies: Hx Peritoneal Dialysis Psychiatric Medical History: Reports: Hx Anxiety Past Surgical History: Reports: Hx Oral Surgery - [place] teeth - Immunizations Hx Diphtheria, Pertussis, Tetanus Vaccination: Yes Review of Systems - Review of Systems -: Yes ROS unobtainable due to patient's medical condition Physical Exam - Vital signs Interpretation: Normal Notes: PHYSICAL EXAMINATION: GENERAL: Agitated, combative, unable to be redirected HEAD: Atraumatic, normocephalic. EYES: Pupils equal round and reactive to light, extraocular movements intact, sclera anicteric, conjunctiva are normal. ENT: nares patent, Moist mucous membranes. NECK: Normal range of motion, LUNGS: Breath sounds clear to auscultation bilaterally and equal. No wheezes rales or rhonchi. HEART: Regular rate and rhythm without murmurs ABDOMEN: Soft, nontender, normoactive bowel sounds. No guarding, no rebound. No masses appreciated. EXTREMITIES: Normal range of motion, no pitting or edema. No cyanosis. NEUROLOGICAL: No focal neurological deficits. Moves all extremities spontaneously PSYCH: Agitated, disoriented, unable to be redirected SKIN: Warm, Dry, normal turgor, no rashes or lesions noted. Course - Re-evaluation Re-evalutation: 11/29/18 01:31 Patient presents extremely agitated, combative, disoriented in [facility] custody. She is unable to be de-escalated, no insight to her current condition. Was on scene with a pneumatic jack operator knife threatening to kill herself. I did speak directly to the [facility] officer on scene who does corroborate this history. Patient is unwilling to comply with treatment or history taking. She will be administered haloperidol and midazolam IM for her safety as well as safety of staff and restraints will be applied. She will require frequent reassessments given her degree of disorie ntation and agitation 11/29/18 02:24 Patient has been reassessed at regular intervals. She is now resting comfortably, much more calm and cooperative. Labs pending. 11/29/18 03:01 Patient continues to be resting comfortably. No longer requiring restraints. Medical screening exam and labs unremarkable. Patient is cleared for evaluation and disposition by behavioral health services in the morning. I have placed an IVC. - Laboratory Result Diagrams: 11/29/18 01:55 11/29/18 01:55 Laboratory results interpreted by me: 11/29/18 01:55 Potassium 3.5 L Glucose 118 H Salicylates < 1.0 L Acetaminophen < 10 L Critical Care Note - Critical Care Note Total time excluding time spent on procedures (mins): 38 Comments: Critical care time spent obtaining history from police and EMS, evaluation of patient's response to treatment, examination of patient, ordering and performing treatments and interventions, ordering and review of laboratory studies, re- evaluation of patient's condition, review of old charts Discharge - Discharge Clinical Impression: Hallucination, Suicidal ideation Condition: Fair Disposition: PSYCH HOSP/UNIT
[2018-11-29 02:04] LABS: ABSOLUTE LYMPHOCYTES (AUTO) 1.5 10^3/uL (0.5-4.7); ABSOLUTE MONOCYTES (AUTO) 0.5 10^3/uL (0.1-1.4); ABSOLUTE NEUT (AUTO) 4.7 10^3/uL (1.7-8.2); BASOPHILS % (AUTO) 0.3 % (0-2); EOSINOPHILS % (AUTO) 0.5 % (0-6); HEMATOCRIT 40.3 % (36.0-47.0); HEMOGLOBIN 13.4 g/dL (12.0-15.5); LYMPHOCYTES % (AUTO) 21.9 % (13-45); MEAN CORPUSCULAR HEMOGLOBIN 28.1 pg (27.0-33.4); MEAN CORPUSCULAR HGB CONC 33.3 g/dL (32.0-36.0); MEAN CORPUSCULAR VOLUME 84 fl (80-97); MONOCYTES % (AUTO) 7.5 % (3-13); PLATELET COUNT 216 10^3/uL (150-450); RED BLOOD COUNT 4.78 10^6/uL (3.72-5.28); RED CELL DISTRIBUTION WIDTH 12.9 % (11.5-14.0); SEGMENTED NEUTROPHILS % (AUTO) 69.8 % (42-78); TOTAL CELLS COUNTED % (AUTO) 100 %; WHITE BLOOD COUNT 6.8 10^3/uL (4.0-10.5)
[2018-11-29 02:25] LABS: ALANINE AMINOTRANSFERASE 32 U/L (9-52); ALBUMIN 4.9 g/dL (3.5-5.0); ALKALINE PHOSPHATASE 70 U/L (38-126); ANION GAP 13 (5-19); ASPARTATE AMINO TRANSFERASE 35 U/L (14-36); BILIRUBIN,DIRECT 0.3 mg/dL (0.0-0.4); BILIRUBIN,TOTAL 0.7 mg/dL (0.2-1.3); BLOOD UREA NITROGEN 7 mg/dL (7-20); CALCIUM 10.2 mg/dL (8.4-10.2); CARBON DIOXIDE 22 mmol/L (22-30); CHLORIDE 106 mmol/L (98-107); GLUCOSE 118 mg/dL (75-110); POTASSIUM 3.5 mmol/L (3.6-5.0); SODIUM 140.8 mmol/L (137-145); TOTAL PROTEIN 7.8 g/dL (6.3-8.2)
[2018-11-29 02:26] LABS: ACETAMINOPHEN < 10 ug/mL (10-30); ALCOHOL < 10 mg/dL (NONE DETECTED); SALICYLATE < 1.0 mg/dL (2.0-20.0)
[2018-11-29] MEDS ORDERED: HALOPERIDOL LACTATE INJ 5 MG/1 ML VIAL ONE (06:45)
[2018-11-29] MEDS ORDERED: LORAZEPAM INJ 2 MG/1 ML VIAL ONE (06:45)
[2018-11-29 09:32] VITALS: BP 118/76
--- NOTE | 2018-11-29 10:55 | EKG REPORT ---
SEVERITY:- NORMAL ECG - SINUS RHYTHM : Confirmed by: Lynsey Carrera 29-Nov-2018 10:54:31
[2018-11-29 10:57] LABS: APPEARANCE,URINE CLOUDY; BILIRUBIN,URINE NEGATIVE (NEGATIVE); COLOR,URINE YELLOW; GLUCOSE, URINE NEGATIVE (NEGATIVE); KETONES,URINE 20 mg/dL (NEGATIVE); LEUKOCYTE ESTERASE,URINE SMALL (NEGATIVE); NITRITE,URINE NEGATIVE (NEGATIVE); PROTEIN,URINE NEGATIVE (NEGATIVE); URINE SPECIFIC GRAVITY 1.025; UROBILINOGEN,URINE NEGATIVE mg/dL (<2.0)
[2018-11-29 11:14] LABS: URINE AMPHETAMINES SCREEN NEGATIVE; URINE BARBITURATES SCREEN NEGATIVE; URINE BENZODIAZEPINES SCREEN NEGATIVE; URINE COCAINE SCREEN NEGATIVE; URINE MARIJUANA (THC) SCREEN UNCONFIRMED POSITIVE; URINE METHADONE SCREEN NEGATIVE; URINE PHENCYCLIDINE SCREEN NEGATIVE
[2018-11-29] MEDS ORDERED: LORAZEPAM INJ 2 MG/1 ML VIAL IM ONE (14:27)
== END 2018-11-29 15:30 ==
LOC: ER 01:21
DX: R45.851 Suicidal ideations (principal); R44.3 Hallucinations, unspecified; Z78.1 Physical restraint status
CPT/HCPCS: 93005; 99291; 96372; 36415; 80307 ×4; 84703; 85025; 80053; 81001; 93010; J1630; J2060

== ENCOUNTER 2020-06-11 23:34 | Outpatient (CLI) | payer MEDICAID ==
[2020-06-12 00:37] LABS: APPEARANCE,URINE CLEAR; BILIRUBIN,URINE NEGATIVE (NEGATIVE); COLOR,URINE YELLOW; GLUCOSE, URINE NEGATIVE (NEGATIVE); KETONES,URINE NEGATIVE (NEGATIVE); LEUKOCYTE ESTERASE,URINE NEGATIVE (NEGATIVE); NITRITE,URINE NEGATIVE (NEGATIVE); PROTEIN,URINE NEGATIVE (NEGATIVE); URINE SPECIFIC GRAVITY 1.014; UROBILINOGEN,URINE NEGATIVE mg/dL (<2.0)
[2020-06-12 01:02] LABS: URINE AMPHETAMINES SCREEN NEGATIVE; URINE BARBITURATES SCREEN NEGATIVE; URINE BENZODIAZEPINES SCREEN NEGATIVE; URINE COCAINE SCREEN NEGATIVE; URINE MARIJUANA (THC) SCREEN NEGATIVE; URINE METHADONE SCREEN NEGATIVE; URINE PHENCYCLIDINE SCREEN NEGATIVE
--- NOTE | 2020-06-12 09:34 | RADIOLOGY REPORT (SQ) ---
EXAM DESCRIPTION: U/S OB LIMITED IMAGES COMPLETED DATE/TIME: 06/12/2020 1:30 am REASON FOR STUDY: cerclage placed 02/23/2020, cramping, fluid COMPARISON: None. TECHNIQUE: Limited transvaginal grayscale ultrasound for evaluation of specific requested obstetrica l parameters. LIMITATIONS: None. FINDINGS: CERVICAL LENGTH: 5.9 cm. Closed. ELIDA: 11.7 cm. FHR: 130 beats per minute. PRESENTATION: Cephalic. PLACENTA: Anterior ANATOMY: Not assessed OTHER: Estimated weight 1760 g IMPRESSION: LIMITED OBSTETRICAL ULTRASOUND WITH MEASURED PARAMETERS DELINEATED ABOVE. Trimester of : Third trimester - 28 weeks to delivery. TECHNICAL DOCUMENTATION: JOB ID: [id number] [employer]- All Rights Reserved Reading location - IP/workstation name: [email or web address]
== END 2020-06-12 01:40 | disposition home or self-care (01) ==
LOC: LC 23:34
PROVIDERS: ATTEND Student in an Organized Health Care Education/Training Program
DX: O47.03 False labor before 37 completed weeks of gestation, third trimester (principal); Z3A.29 29 weeks gestation of pregnancy
CPT/HCPCS: 76815; 80307; 81001